=== PATIENT | male | born 1950 | race Caucasian/White ===

== ENCOUNTER 2020-08-09 08:04 | Inpatient (IN) | payer MEDICARE, SELFPAY ==
[2020-08-09] VITALS (7 sets, daily range): BP systolic 102–131; BP diastolic 48–79; PULSE 61–71; RESP 18–20; TEMP 36.5–36.7; O2SAT 90–98; BMI 32.5
--- NOTE | ~2020-08-09 | XR_ITS ---
EXAMINATION: XR chest 2V EXAM DATE: 08/10/2020 09:27 INDICATION: Pneumonia. TECHNIQUE: Frontal and lateral projections of the chest obtained and reviewed. There is no prior sierra dy for comparison. FINDINGS: There is moderate cardiomegaly. There is a dual lead pacemaker/AICD seen with leads projec ting over the expected locations of the right atrial appendage and right ventricle. There is dense co nfluent multi segmental right middle and lower lobe airspace disease most likely bacterial pneumonia. Left lung appears clear. No pneumothorax or sizable pleural effusion. There are bony degenerative ch anges. IMPRESSION: 1. Dense multisegmental right basilar pneumonia. Follow-up indicated to exclude any underlying cance r. 2. Cardiomegaly. Reviewed, dictated and finalized at location A. IMPRESSION: 1. Dense multisegmental right basilar pneumonia. Follow-up indicated to exclud e any underlying cancer. 2. Cardiomegaly.
--- NOTE | 2020-08-09 08:35 | PC.NURSE ---
This patient, Miah Colon, was admitted to 3 [facility] Room 331-01. Patient was a direct admit from [facility]. Report received from EMS. Patient/family oriented to hospital policies and general routines including ID bracelet, bed and alarms, visiting hours, pain management, procedures, bathroom and other care routines, personal items, smoking policy, room service/diet, and visiting hours. Valuables list has been completed. Information on how to activate the Rapid Response Team has been discussed. Patient/Family are encouraged to report perceived risks to care and to ask questions if they do not understand what they are told or what they should do.
[2020-08-09 11:15] LABS: Basophils Percent Auto 0.5 % (0.2-1.2); Eosinophils Absolute Auto 0.2 K/mm3 (0-0.3); Eosinophils Percent Auto 2.5 % (0-4.4); Hematocrit 40.3 % (42.0-52.0); Hemoglobin 12.4 g/dL (14.0-18.0); Immature Granulocyte Absolute 0.02 K/mm3 (0.00-0.031); Immature Granulocyte Percent A 0.3 % (0-0.5); Lymphocytes Absolute Auto 0.46 K/mm3 (0.9-3.2); Lymphocytes Percent Auto 5.8 % (18.3-44.2); Mean Corpuscular HGB Conc 30.8 g/dl (32-36); Mean Corpuscular Hemoglobin 26.7 pg (26-34); Mean Corpuscular Volume 86.7 fl (80-100); Mean Platelet Volume 9.5 fl (7.4-10.4); Monocytes Absolute Auto 0.9 K/mm3 (0.1-0.6); Monocytes Percent Auto 11.6 % (2.6-8.5); Neutrophils Absolute Auto 6.2 K/mm3 (1.3-6.7); Neutrophils Percent Auto 79.3 % (45.5-73.1); Platelet Count Result 378 k/mm3 (150-375); Red Blood Count 4.65 M/mm3 (4.6-6.20); Red Cell Distribution Width 16.7 % (11.5-14.5); White Blood Count 7.9 K/mm3 (4.5-10.0)
[2020-08-09 11:30] LABS: Alanine Aminotransferase 12 U/L (4-50); Alkaline Phosphatase 147 U/L (38-126); Anion Gap 12 mmol/L (8-16); Aspartate Amino Transferase 20 U/L (17-59); Bilirubin,Total 0.8 mg/dL (0.2-1.3); Blood Urea Nitrogen 66 mg/dL (9-20); CRP 2.8 mg/dL (<1.0); Calcium 9.6 mg/dL (8.4-10.2); Carbon Dioxide 31 mmol/L (22-30); Chloride 101 mmol/L (98-107); Estimated CRCL calculation 39 ml/min; Estimated Glomerular Filt Rate 35; Glucose 178 mg/dL (75-110); INR 2.6; Potassium 3.6 mmol/L (3.4-5.0); Prothrombin Time 27.5 Seconds (11.1-14.7); Sodium 144 mmol/L (137-145)
[2020-08-09 11:32] LABS: D Dimer 2.78 ug/mL (<0.48)
[2020-08-09 12:19] LABS: Glucose Point of Care 155 (65-105)
[2020-08-09] MEDS: PANTOPRAZOLE 40 MG TABLET PO (14:53)
[2020-08-09] MEDS: ASPIRIN 81 MG ENTERIC TABLET PO (14:53)
[2020-08-09] MEDS: CHOLECALCIFEROL 1,000 UNITS TABLET 1000 UNITS PO (14:54)
[2020-08-09] MEDS: SPIRONOLACTONE 12.5 MG TABLET PO (14:55)
[2020-08-09] MEDS: BENZONATATE 100 MG CAPSULE PO (14:55)
[2020-08-09] MEDS: POTASSIUM CHLORIDE 20 MEQ TABLET.ER 40 MEQ PO ×2 (14:55→18:23)
[2020-08-09] MEDS: LOSARTAN POTASSIUM 50 MG TABLET PO (14:55)
[2020-08-09] MEDS: FUROSEMIDE 80 MG TABLET PO (14:56)
[2020-08-09] MEDS: amLODIPine BESYLATE 5 MG TABLET 10 MG PO (14:56)
[2020-08-09] MEDS: METOPROLOL SUCCINATE EXT REL 25 MG TABCR PO (14:58)
[2020-08-09 16:29] LABS: SARS-CoV-2 RNA PCR Negative
--- NOTE | 2020-08-09 17:15 | PM.IMHP ---
H&P: HPI History of Present Illness Date/Time: 08/09/20 17:15 Chief complaint: pneumonia Narrative: Miah Colon is a 70 year old male patient is 70-year-old male with history of coronary artery disease, diabetes hypertension initially presented to outside facility with cough shortness of breath and fatigue, his chest x-ray showed patient has a pneumonia is suspected the patient may have COVID-19 and was transferred the hospital, patient states is coughing is getting worse is short of breath he feel feverish and chills, he denies any chest pain palpitation dizziness, patient is been isolated and been under investigation for COVID-19, patient has a pneumonia I have started the patient on Zosyn and vancomycin will continue to monitor repeat chest x-ray in 2 days. Review of Systems Review of Systems: ROS unobtainable: Yes unobtainable due to medical condition PMFSH Social History Social History Smoking packs per day: 3 Smoking cigarettes per day: 60.0 Years smoked: 14 Smoking pack-years: 42.00 Smoking status: Former smoker Tobacco type: cigarettes Smokeless tobacco user: chewing tobacco Alcohol intake: former Substance use: unknown Spiritual care concerns: Yes ([employer]) Meds Home Medications and Allergies Home Medications Medication Instructions Recorded Confirmed Type amlodipine 10 mg PO DAILY 08/09/20 08/09/20 History aspirin [Adult Low Dose Aspirin] 81 mg PO DAILY 08/09/20 08/09/20 History benzonatate 100 mg PO TID PRN 08/09/20 08/09/20 History cholecalciferol (vitamin D3) 25 mcg PO DAILY 08/09/20 08/09/20 History [Vitamin D3] coenzyme Q10 200 mg PO DAILY 08/09/20 08/09/20 History furosemide 80 mg PO DAILY 08/09/20 08/09/20 History insulin NPH and regular human 12 unit SUBCUT BIDAC 08/09/20 08/09/20 History losartan 50 mg PO DAILY 08/09/20 08/09/20 History methimazole 5 mg PO DAILY 08/09/20 08/09/20 History metoprolol succinate 25 mg PO DAILY 08/09/20 08/09/20 History oxybutynin chloride 10 mg PO DAILY 08/09/20 08/09/20 History pantoprazole 40 mg PO DAILY 08/09/20 08/09/20 History potassium chloride 40 meq PO BID 08/09/20 08/09/20 History spironolactone 12.5 mg PO DAILY 08/09/20 08/09/20 History tramadol 50 mg PO QID PRN 08/09/20 08/09/20 History warfarin See Rx Instructions .ROUTE .COMPLEX 08/09/20 08/09/20 History warfarin See Rx Instructions .ROUTE .COMPLEX 08/09/20 08/09/20 History Allergies Allergy/AdvReac Type Severity Reaction Status Date / Time amiodarone Allergy Unknown Verified 08/09/20 08:42 hydrocodone Allergy Unknown Verified 08/09/20 08:42 ibuprofen Allergy Unknown Verified 08/09/20 08:42 iodine Allergy Unknown Verified 08/09/20 08:42 naproxen Allergy Unknown Verified 08/09/20 08:42 NSAIDS (Non-Steroidal Allergy Unknown Verified 08/09/20 08:42 Anti-Inflamma rosuvastatin Allergy Unknown Verified 08/09/20 08:42 Vital Signs Vital Signs - 24 hr 08/09/20 09:00 08/09/20 12:00 08/09/20 14:58 Temperature 98.1 F 97.7 F Pulse Rate 71 61 61 Respiratory Rate 18 18 Blood Pressure 131/79 102/55 L Pulse Oximetry 98 96 08/09/20 16:00 Temperature Pulse Rate 65 Respiratory Rate Blood Pressure Pulse Oximetry Exam Narrative: Exam Narrative: patient was seen in the room but not examined, temperature is 97.7?, pulse is 60 of, respiratory is 18, pulse ox 96% at 2 L nasal cannula blood pressure is 102/55. Const: General: comfortable and no acute distress HENMT: General nose exam: Normal nares present Eyes: Sclera: sclerae normal Neck: Other: no retraction Resp: Effort & Inspection: normal respiratory effort GI: Other: not distended Skin: General skin exam: normal color Neuro: Speech: normal speech Extrem: General: normal to inspection Psych: Affect: Anxious affect present H&P: Results Labs Labs: Short CBC 08/09/20 Range/Units 11:00 WBC 7.9 (4.5-10.0) K/mm3 Hgb 12.4 L (14.0-18.0) g/dL Hct 40.3 L (42.0-52
[2020-08-09] MEDS: methiMAzole 5 MG TAB PO (18:22)
[2020-08-09] MEDS: INSULIN HUMAN ISOPHAN/REGULAR 70/30 (*BKC) 100 UNITS/ML 12 UNITS SUB-Q (18:22)
[2020-08-09] MEDS: WARFARIN (*PBKC) 2.5 MG TABLET PO (18:23)
[2020-08-09 18:46] LABS: Glucose Point of Care 174 (65-105)
[2020-08-09 21:06] LABS: Glucose Point of Care 240 (65-105)
[2020-08-09] MEDS: traMADol HCL (*CRX) 50 MG TABLET PO (23:27)
[2020-08-10] VITALS (12 sets, daily range): BP systolic 104–123; BP diastolic 52–66; PULSE 60–71; RESP 18–20; TEMP 36.4–36.6; O2SAT 93–97
[2020-08-10 06:31] LABS: INR 2.8; Prothrombin Time 28.6 Seconds (11.1-14.7)
[2020-08-10 06:38] LABS: Potassium 4.3 mmol/L (3.4-5.0)
[2020-08-10] MEDS: INSULIN HUMAN ISOPHAN/REGULAR 70/30 (*BKC) 100 UNITS/ML 12 UNITS SUB-Q ×2 (06:43→17:31)
[2020-08-10 06:51] LABS: Glucose Point of Care 117 (65-105)
[2020-08-10] MEDS: BENZONATATE 100 MG CAPSULE PO ×3 (07:43→21:11)
[2020-08-10 08:10] LABS: Glucose Point of Care 133 (65-105)
[2020-08-10] MEDS: CHOLECALCIFEROL 1,000 UNITS TABLET 1000 UNITS PO (08:45)
[2020-08-10] MEDS: ASPIRIN 81 MG ENTERIC TABLET PO (08:45)
[2020-08-10] MEDS: amLODIPine BESYLATE 5 MG TABLET 10 MG PO (08:45)
[2020-08-10] MEDS: FUROSEMIDE 80 MG TABLET PO (08:45)
[2020-08-10] MEDS: METOPROLOL SUCCINATE EXT REL 25 MG TABCR PO (08:46)
[2020-08-10] MEDS: POTASSIUM CHLORIDE 20 MEQ TABLET.ER 40 MEQ PO ×2 (08:46→17:12)
[2020-08-10] MEDS: methiMAzole 5 MG TAB PO (08:46)
[2020-08-10] MEDS: LOSARTAN POTASSIUM 50 MG TABLET PO (08:46)
[2020-08-10] MEDS: PANTOPRAZOLE 40 MG TABLET PO (08:46)
[2020-08-10] MEDS: SPIRONOLACTONE 12.5 MG TABLET PO (08:47)
[2020-08-10 09:03] LABS: Hematocrit 39.2 % (42.0-52.0); Hemoglobin 12.1 g/dL (14.0-18.0); Mean Corpuscular HGB Conc 30.9 g/dl (32-36); Mean Corpuscular Hemoglobin 26.8 pg (26-34); Mean Corpuscular Volume 86.9 fl (80-100); Platelet Count Result 365 k/mm3 (150-375); Red Blood Count 4.51 M/mm3 (4.6-6.20); Red Cell Distribution Width 16.6 % (11.5-14.5); White Blood Count 7.7 K/mm3 (4.5-10.0)
[2020-08-10 09:11] LABS: Anion Gap 11 mmol/L (8-16); Blood Urea Nitrogen 61 mg/dL (9-20); Calcium 9.5 mg/dL (8.4-10.2); Carbon Dioxide 29 mmol/L (22-30); Chloride 103 mmol/L (98-107); Estimated CRCL calculation 35 ml/min; Estimated Glomerular Filt Rate 31; Glucose 132 mg/dL (75-110); Magnesium 2.2 mg/dL (1.6-2.3); Potassium 4.3 mmol/L (3.4-5.0); Sodium 143 mmol/L (137-145)
[2020-08-10 13:02] LABS: Glucose Point of Care 111 (65-105)
--- NOTE | 2020-08-10 13:31 | PM.IMPN ---
Progress Note: A&P Assessment and Plan (1) CAP (community acquired pneumonia): Code(s): J18.9 - Pneumonia, unspecified organism Status: Acute Assessment and Plan: 08/10/20 13:31 Miah Colon is a 70 year old male patient is 70-year-old male with history of coronary artery disease, diabetes hypertension initially presented to outside facility on 08/09 with cough shortness of breath and fatigue, his chest x-ray showed patient has a pneumonia is suspected the patient may have COVID-19 and was transferred the hospital, patient states is coughing is getting worse was short of breath he felt feverish and chills, he denied any chest pain palpitation dizziness, patient was isolated and was under investigation for COVID-19, patient has a pneumonia I have started the patient on Zosyn and vancomycin, today 08/10 patient COVID test is negative and is out of isolation, sitting on the side of the bed patient states is feeling little better compared to when he arrived, cough and shortness of breath still persisting repeat chest x-ray showed Dense multisegmental right basilar pneumonia. Follow-up indicated to exclude any underlying cancer. 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 (2) COVID-19 ruled out: Code(s): Z03.818 - Encounter for observation for suspected exposure to other biological agents ruled out Status: Acute Assessment and Plan: patient is being tested its negative (3) Hypertension: Code(s): I10 - Essential (primary) hypertension Status: Acute Assessment and Plan: will continue home regimen and monitor (4) Diabetes: Code(s): E11.9 - Type 2 diabetes mellitus without complications Status: Acute Assessment and Plan: will continue home regimen and monitor Subjective Date/time seen: 08/10/20 13:31 Miah Colon is a 70 year old male patient is 70-year-old male with history of coronary artery disease, diabetes hypertension initially presented to outside facility on 08/09 with cough shortness of breath and fatigue, his chest x-ray showed patient has a pneumonia is suspected the patient may have COVID-19 and was transferred the hospital, patient states is coughing is getting worse was short of breath he felt feverish and chills, he denied any chest pain palpitation dizziness, patient was isolated and was under investigation for COVID-19, patient has a pneumonia I have started the patient on Zosyn and vancomycin, today 08/10 patient COVID test is negative and is out of isolation, sitting on the side of the bed patient states is feeling little better compared to when he arrived, cough and shortness of breath still persisting repeat chest x-ray showed Dense multisegmental right basilar pneumonia. Follow-up indicated to exclude any underlying cancer. will continue Zosyn and vancomycin will add doxycycline most likely patient has healthcare associated pneumonia, patient is also on chronically on Coumadin but unable to tell me why he is taking however he maintains his INR between 2 and 3, will continue to monitor, will have a PT OT evaluate the patient patient does have amputation [id number] of left lower extremity. Review of Systems Review of Systems: All systems reviewed & are unremarkable except as noted in HPI and below Exam Const: General: comfortable and no acute distress HENMT: General nose exam: Normal nares present Eyes: Sclera: sclerae normal Neck: Neck: supple Resp: Other: bilateral fair air entry with rhonch diminishing air entry in right lower basesi Cardio: Rate: regular rate Rhythm: regular rhythm GI: Ausc
[2020-08-10] MEDS: WARFARIN (*PBKC) 5 MG TABLET PO (17:12)
[2020-08-10 17:45] LABS: Glucose Point of Care 151 (65-105)
[2020-08-10 21:19] LABS: Glucose Point of Care 117 (65-105)
[2020-08-11] VITALS (8 sets, daily range): BP systolic 110–122; BP diastolic 49–74; PULSE 60–73; RESP 18–20; TEMP 36.2–36.5; O2SAT 92–96
[2020-08-11 06:12] LABS: Hematocrit 38.6 % (42.0-52.0); Hemoglobin 11.6 g/dL (14.0-18.0); Mean Corpuscular HGB Conc 30.1 g/dl (32-36); Mean Corpuscular Hemoglobin 26.1 pg (26-34); Mean Corpuscular Volume 86.9 fl (80-100); Mean Platelet Volume 9.8 fl (7.4-10.4); Platelet Count Result 404 k/mm3 (150-375); Red Blood Count 4.44 M/mm3 (4.6-6.20); Red Cell Distribution Width 16.6 % (11.5-14.5)
[2020-08-11 06:18] LABS: INR 3.4; Prothrombin Time 33.9 Seconds (11.1-14.7)
[2020-08-11 06:21] LABS: Anion Gap 13 mmol/L (8-16); Blood Urea Nitrogen 63 mg/dL (9-20); Calcium 9.3 mg/dL (8.4-10.2); Carbon Dioxide 30 mmol/L (22-30); Chloride 101 mmol/L (98-107); Estimated CRCL calculation 31 ml/min; Estimated Glomerular Filt Rate 27; Glucose 118 mg/dL (75-110); Potassium 4.6 mmol/L (3.4-5.0); Sodium 144 mmol/L (137-145)
[2020-08-11] MEDS: BENZONATATE 100 MG CAPSULE PO (06:30)
[2020-08-11] MEDS: INSULIN HUMAN ISOPHAN/REGULAR 70/30 (*BKC) 100 UNITS/ML 12 UNITS SUB-Q (06:41)
[2020-08-11 08:42] LABS: Glucose Point of Care 92 (65-105)
[2020-08-11] MEDS: ASPIRIN 81 MG ENTERIC TABLET PO (09:07)
[2020-08-11] MEDS: amLODIPine BESYLATE 5 MG TABLET 10 MG PO (09:07)
[2020-08-11] MEDS: CHOLECALCIFEROL 1,000 UNITS TABLET 1000 UNITS PO (09:07)
[2020-08-11] MEDS: LOSARTAN POTASSIUM 50 MG TABLET PO (09:08)
[2020-08-11] MEDS: methiMAzole 5 MG TAB PO (09:09)
[2020-08-11] MEDS: METOPROLOL SUCCINATE EXT REL 25 MG TABCR PO (09:09)
[2020-08-11] MEDS: SPIRONOLACTONE 12.5 MG TABLET PO (09:10)
[2020-08-11] MEDS: PANTOPRAZOLE 40 MG TABLET PO (09:10)
[2020-08-11] MEDS: POTASSIUM CHLORIDE 20 MEQ TABLET.ER 40 MEQ PO ×2 (09:10→17:02)
--- NOTE | 2020-08-11 12:15 | PM.IMPN ---
Progress Note: A&P Assessment and Plan (1) CAP (community acquired pneumonia): Code(s): J18.9 - Pneumonia, unspecified organism Status: Acute Assessment and Plan: 08/11/20 12:15 Miah Colon is a 70 year old male patient is 70-year-old male with history of coronary artery disease, diabetes hypertension initially presented to outside facility on 08/09 with cough shortness of breath and fatigue, his chest x-ray showed patient has a pneumonia is suspected the patient may have COVID-19 and was transferred the hospital, patient states is coughing is getting worse was short of breath he felt feverish and chills, he denied any chest pain palpitation dizziness, patient was isolated and was under investigation for COVID-19, patient has a pneumonia I have started the patient on Zosyn and vancomycin, on 08/10 patient COVID test was negative and out of isolation, was sitting on the side of the bed patient stated feeling little better compared to when he arrived, cough and shortness of breath were still persisting repeated chest x-ray showed Dense multisegmental right basilar pneumonia. Follow-up indicated to exclude any underlying cancer. continued Zosyn and vancomycin added doxycycline most likely patient has healthcare associated pneumonia, patient is also on chronically on Coumadin but unable to tell me why he is taking however he maintains his INR between 2 and 3, Today on 08/11 patient stats feeling better and urinating, he creatinine is rising will hold Lasix 80mg PO, INR is elevated to 3.4 will hold warfarin, will continue to monitor, will have a PT OT evaluate the patient patient does have amputation [id number] of left lower extremity. will repeat his x-ray tomorrow. (2) COVID-19 ruled out: Code(s): Z03.818 - Encounter for observation for suspected exposure to other biological agents ruled out Status: Acute Assessment and Plan: patient is being tested its negative (3) Hypertension: Code(s): I10 - Essential (primary) hypertension Status: Acute Assessment and Plan: will continue home regimen and monitor (4) Diabetes: Code(s): E11.9 - Type 2 diabetes mellitus without complications Status: Acute Assessment and Plan: will continue home regimen and monitor Subjective Date/time seen: 08/11/20 12:15 Miah Colon is a 70 year old male patient is 70-year-old male with history of coronary artery disease, diabetes hypertension initially presented to outside facility on 08/09 with cough shortness of breath and fatigue, his chest x-ray showed patient has a pneumonia is suspected the patient may have COVID-19 and was transferred the hospital, patient states is coughing is getting worse was short of breath he felt feverish and chills, he denied any chest pain palpitation dizziness, patient was isolated and was under investigation for COVID-19, patient has a pneumonia I have started the patient on Zosyn and vancomycin, on 08/10 patient COVID test was negative and out of isolation, was sitting on the side of the bed patient stated feeling little better compared to when he arrived, cough and shortness of breath were still persisting repeated chest x-ray showed Dense multisegmental right basilar pneumonia. Follow-up indicated to exclude any underlying cancer. continued Zosyn and vancomycin added doxycycline most likely patient has healthcare associated pneumonia, patient is also on chronically on Coumadin but unable to tell me why he is taking however he maintains his INR between 2 and 3, Today on 08/11 patient stats feeling better and urinating, he creatinine is rising will hold Lasix 80mg PO, INR is elevated to 3.4 will hold warfarin, will continue to monitor, will have a PT OT evaluate the patient patient does have amputation [id number] of left lower extremity. will repeat his x-ray tomorrow. Review of Systems Review of Systems: All systems reviewed & are
[2020-08-11 13:52] LABS: Glucose Point of Care 141 (65-105)
--- NOTE | 2020-08-11 14:56 | PM.TDS ---
Transfer Discharge Sum: Prov Provider Date of admission: 08/09/20 14:27 Primary care physician: Wilbert Miranda, MD Admitting clinician: Claudia Ashby DO DS: Admitting Diagnosis Admitting Diagnosis Admitting Diagnosis: pneumonia DS: Discharge Diagnosis Discharge Diagnosis (1) CAP (community acquired pneumonia): Code(s): J18.9 - Pneumonia, unspecified organism Status: Acute Assessment and Plan: 08/11/20 12:15 Miah Colon is a 70 year old male patient is 70-year-old male with history of coronary artery disease, diabetes hypertension initially presented to outside facility on 08/09 with cough shortness of breath and fatigue, his chest x-ray showed patient has a pneumonia is suspected the patient may have COVID-19 and was transferred the hospital, patient states is coughing is getting worse was short of breath he felt feverish and chills, he denied any chest pain palpitation dizziness, patient was isolated and was under investigation for COVID-19, patient has a pneumonia I have started the patient on Zosyn and vancomycin, on 08/10 patient COVID test was negative and out of isolation, was sitting on the side of the bed patient stated feeling little better compared to when he arrived, cough and shortness of breath were still persisting repeated chest x-ray showed Dense multisegmental right basilar pneumonia. Follow-up indicated to exclude any underlying cancer. continued Zosyn and vancomycin added doxycycline most likely patient has healthcare associated pneumonia, patient is also on chronically on Coumadin but unable to tell me why he is taking however he maintains his INR between 2 and 3, Today on 08/11 patient stats feeling better and urinating, he creatinine is rising will hold Lasix 80mg PO, INR is elevated to 3.4 will hold warfarin, will continue to monitor, will have a PT OT evaluate the patient patient does have amputation [id number] of left lower extremity. will repeat his x-ray tomorrow. patient has significant cardiac history and he is seen by architectural renderer at [facility] patient and the family would like him to be transferred, a call the hospital spoke with his cardiology and he has accepted the patient will discharge the patient the hospital (2) COVID-19 ruled out: Code(s): Z03.818 - Encounter for observation for suspected exposure to other biological agents ruled out Status: Acute Assessment and Plan: patient is being tested its negative (3) Hypertension: Code(s): I10 - Essential (primary) hypertension Status: Acute Assessment and Plan: will continue home regimen and monitor (4) Diabetes: Code(s): E11.9 - Type 2 diabetes mellitus without complications Status: Acute Assessment and Plan: will continue home regimen and monitor Transfer Discharge Sum: Med Medications Active and Home Medications: Home Medications amlodipine 10 mg PO DAILY 08/09/20 [History Confirmed 08/09/20] aspirin [Adult Low Dose Aspirin] 81 mg PO DAILY 08/09/20 [History Confirmed 08/09/20] benzonatate 100 mg PO TID PRN 08/09/20 [History Confirmed 08/09/20] cholecalciferol (vitamin D3) [Vitamin D3] 25 mcg PO DAILY 08/09/20 [History Confirmed 08/09/20] coenzyme Q10 200 mg PO DAILY 08/09/20 [History Confirmed 08/09/20] furosemide 80 mg PO DAILY 08/09/20 [History Confirmed 08/09/20] insulin NPH and regular human 12 unit SUBCUT BIDAC 08/09/20 [History Confirmed 08/09/20] losartan 50 mg PO DAILY 08/09/20 [History Confirmed 08/09/20] methimazole 5 mg PO DAILY 08/09/20 [History Confirmed 08/09/20] metoprolol succinate 25 mg PO DAILY 08/09/20 [History Confirmed 08/09/20] oxybutynin chloride 10 mg PO DAILY 08/09/20 [History Confirmed 08/09/20] pantoprazole 40 mg PO DAILY 08/09/20 [History Confirmed 08/09/20] potassium chloride 40 meq PO BID 08/09/20 [History Confirmed 08/09/20] spironolactone 12.5 mg PO DAILY 08/09/20 [History Confirmed 08/09/20
--- NOTE | 2020-08-11 15:12 | PCOTNOTE ---
Occupational therapy attempted to see pt 2x today, however, pt refused on both visits. Pt's was present during second attempt and stated that pt was not feeling good today. RN stated that pt is being transferred out to another facility today due to medical issues. Will continue per POC frequency and duration.
--- NOTE | 2020-08-11 15:46 | PC.NURSE ---
Report called Tami Merlos at [facility].
[2020-08-11 17:54] LABS: Glucose Point of Care 128 (65-105)
== END 2020-08-11 19:10 | disposition short-term general hospital (02) | DRG 195 ==
PROVIDERS: Internal Medicine; Admitting Provider Family Medicine; PCP Family Medicine; Visit Provider Family Medicine
DX: J18.9 Pneumonia, unspecified organism (principal); Z20.828 Contact with and (suspected) exposure to other viral communicable diseases; E11.9 Type 2 diabetes mellitus without complications; I10 Essential (primary) hypertension; I25.10 Atherosclerotic heart disease of native coronary artery without angina pectoris; Z87.891 Personal history of nicotine dependence; Z89.512 Acquired absence of left leg below knee
CPT/HCPCS: 36415; 71046; 80048; 80053; 82728; 83735; 84132; 85025; 85027; 85380; 85610; 86140; 87635; 97161; 97165; 97530; A9270; C9803; J1815; J2543; J3370; U0003